=== PATIENT | female | born 1970 | race Caucasian/White ===

== ENCOUNTER → 2020-03-19 | Outpatient (CLI) | payer SELFPAY ==
[~2020-03-19] MED LIST: Effexor25 MG PO; KEFLEX500 MG PO; LAMICTAL25 MG PO; MOTRIN800 MG PO
== END | disposition home or self-care (01) ==
LOC: COVID19 13:40
PROVIDERS: ATTEND Internal Medicine
DX: Z20.828 Contact with and (suspected) exposure to other viral communicable diseases (principal)

== ENCOUNTER → 2020-11-30 | Outpatient (CLI) | payer OTHER | END | disposition home or self-care (01) | LOC: LAB 00:11 → COVID19 11:30 | PROVIDERS: ATTEND Internal Medicine | DX: Z11.52 Encounter for screening for COVID-19 (principal) ==